=== PATIENT | female | born 2000 | race African-American/Black ===

== ENCOUNTER 2024-07-06 04:47 | Outpatient (CLI) | payer OTHER ==
[~2024-07-06] VITALS: Ht 160 cm; Wt 64.1 kg
[2024-07-06 05:08] VITALS: BP 94/58
== END 2024-07-06 07:02 | disposition home or self-care (01) ==
LOC: M LDO 04:47
PROVIDERS: ATTEND Advanced Practice Midwife
DX: O26.893 Other specified pregnancy related conditions, third trimester (principal); R10.2 Pelvic and perineal pain; N89.8 Other specified noninflammatory disorders of vagina; Z3A.32 32 weeks gestation of pregnancy
CPT/HCPCS: 59025; G0463

== ENCOUNTER 2025-02-13 04:32 | Emergency (ER) | payer OTHER ==
[~2025-02-13] VITALS: Ht 160 cm; Wt 52.8 kg
[2025-02-13 06:41] VITALS: BP 94/62; O2SAT 98
[2025-02-13] MEDS ORDERED: AMOX875T2 PO (08:16)
[2025-02-13 08:17] VITALS: TEMP 98.3
== END 2025-02-13 08:23 | disposition home or self-care (01) ==
LOC: M ED 04:32
DX: J02.9 Acute pharyngitis, unspecified (principal); Z88.6 Allergy status to analgesic agent; Z79.2 Long term (current) use of antibiotics